=== PATIENT | female | born 1960 | race Caucasian/White ===

== ENCOUNTER → 2020-10-06 | Outpatient (CLI) | payer SELFPAY | END | disposition home or self-care (01) | LOC: RAH 12:36 | PROVIDERS: ATTEND Physical Medicine & Rehabilitation | DX: M48.02 Spinal stenosis, cervical region (principal); M54.12 Radiculopathy, cervical region; M62.838 Other muscle spasm | CPT/HCPCS: 72141 ==

== ENCOUNTER → 2021-01-13 | Outpatient (CLI) | payer OTHER | END | disposition home or self-care (01) | LOC: RAH 14:11 | PROVIDERS: ATTEND Physical Medicine & Rehabilitation | DX: M19.012 Primary osteoarthritis, left shoulder (principal); M24.812 Other specific joint derangements of left shoulder, not elsewhere classified | CPT/HCPCS: 73030 ==